=== PATIENT | female | born 2000 | race Caucasian/White ===

== ENCOUNTER → 2022-03-29 | Outpatient (CLI) | payer MEDICAID, SELFPAY | END | disposition home or self-care (01) | LOC: LABSPEC 11:55 | PROVIDERS: PCP Student in an Organized Health Care Education/Training Program; Referring Provider Nurse Practitioner Women's Health; Visit Provider Nurse Practitioner Women's Health | DX: N89.8 Other specified noninflammatory disorders of vagina (principal) | CPT/HCPCS: 87070; 87205 ==

== ENCOUNTER → 2022-09-27 | Outpatient (CLI) | payer MEDICAID, SELFPAY ==
[2022-09-27 10:23] LABS: Absolute Lymphocyte Count 3.09 X10^3/uL (0.83-4.51); Absolute Neutrophil Count 4.6 X10^3/uL (2.0-7.7); Basophil# 0.04 X10^3/uL; Basophil% 0.5 % (0-1); Eosinophil# 0.06 X10^3/uL; Eosinophils% 0.7 % (0-5); Hematocrit 45.1 % (37-47); Hemoglobin 14.8 g/dL (12.0-15.0); Lymphocyte # 3.09 X10^3/ul (0.83-4.51); Lymphocyte % 38.1 % (19-41); Mean Corp Hgb Conc 32.8 g/dL (32-36); Mean Corpuscular Hgb 29.6 pg (27.0-32.0); Mean Corpuscular Volume 90.2 fL (81-99); Mean Platelet Vol. 10.2 fl (6.2-12.0); Monocyte# 0.33 X10^3/uL; Monocyte% 4.1 % (0-10); NRBC Flagged by Analyzer 0 % (0-5); Neutrophil # 4.57 X10^3/uL (2.7-7.7); Neutrophil % 56.4 % (47-70); Platelet Count 296 K/mm3 (150-450); RBC Distribution Width CV 13.2 % (11.6-14.6); RBC Distribution Width SD 43.8 fl (35.1-43.9); White Blood Count 8.1 K/mm3 (4.4-11.0)
[2022-09-27 10:57] LABS: Anion Gap 2 (5-15); BUN 11 mg/dL (7-18); Calcium,Total 8.7 mg/dL (8.5-10.1); Chloride 113 mmol/L (98-107); EST Glomerular Filtration Rate 65 mL/min (>60); Est Glom Filt Rate - Afr Amer 78 mL/min (>60); Glucose 82 mg/dL (74-106); Potassium 3.8 mmol/L (3.5-5.1); Sodium Level 140 mmol/L (136-145)
[2022-09-27 14:21] LABS: Hemoglobin A1c 4.7 % (3.8-5.6)
== END | disposition home or self-care (01) ==
PROVIDERS: PCP Student in an Organized Health Care Education/Training Program; Referring Provider Obstetrics & Gynecology; Visit Provider Obstetrics & Gynecology
DX: N93.9 Abnormal uterine and vaginal bleeding, unspecified (principal)
CPT/HCPCS: 36415; 80048; 83036; 85025; 86850; 86900; 86901

== ENCOUNTER → 2022-10-04 | Outpatient (CLI) | payer MEDICAID, SELFPAY ==
--- NOTE | 2022-10-04 12:52 | US_ITS ---
STUDY: ULTRASOUND OF THE FEMALE PELVIS - COMPLETE REASON FOR EXAM: Female, 22 years old. AUB LMP: Unknown. TECHNIQUE: Transabdominal TECHNICAL QUALITY: Limited. COMPARISON: None. FINDINGS: The uterus is anteverted and is in a midline position. The uterus measures 7.9 x 4.2 x 3.7 cm. There is a limited visualization of the uterus given the technique. The endometrium is not well visualized. The ovaries were not visualized due to overlying bowel gas.. There is no fluid in the cul-de-sac. The pre void volume of the bladder was 108 ml. Polycystic ovary disease: No. US/Pelvic (Non ) IMPRESSION: Limited study. The uterus is visualized. The endometrium is not well visualized and the ovaries are not visualized. Could consider repeating this study or could consider follow-up MRI of the pelvis given patient''s clinical history presentation. There is no visualized free fluid allowing for technique. Electronically Signed: Yoselin Silveira MD at 5:54 EDT ,
== END | disposition home or self-care (01) ==
LOC: OPUS 12:51
PROVIDERS: PCP Student in an Organized Health Care Education/Training Program; Referring Provider Obstetrics & Gynecology; Visit Provider Obstetrics & Gynecology
DX: N93.9 Abnormal uterine and vaginal bleeding, unspecified (principal)
CPT/HCPCS: 76856

== ENCOUNTER → 2023-09-14 | Outpatient (CLI) | payer MEDICAID, SELFPAY | END | disposition home or self-care (01) | PROVIDERS: PCP Student in an Organized Health Care Education/Training Program; Referring Provider Nurse Practitioner Family; Visit Provider Nurse Practitioner Family | DX: N89.8 Other specified noninflammatory disorders of vagina (principal) | CPT/HCPCS: 87070; 87086; 87088; 87205 ==

== ENCOUNTER 2024-12-11 09:24 | Day surgery (SDC) | payer MEDICAID, SELFPAY ==
--- NOTE | 2024-12-04 10:02 | EKG12_ITS ---
Test Reason : PREOP Blood Pressure : */* mmHG Vent. Rate : 84 BPM Atrial Rate : 84 BPM P-R Int : 126 ms QRS Dur : 78 ms QT Int : 372 ms P-R-T Axes : -3 57 7 degrees QTcB Int : 439 ms Normal sinus rhythm Possible Lateral infarct , age undetermined Abnormal ECG Confirmed by GENE BEAULIEU, VASYL ([id number]), fashion editor DANI ANTON ([id number]) on 12/04/2024 1:47:29 PM Referred By: Rajesh VERDE Confirmed By: VASYL MILLS MD
[2024-12-04 11:37] LABS: Hematocrit 42.6 % (37-47); Hemoglobin 13.8 g/dL (12.0-15.0); Mean Corp Hgb Conc 32.4 g/dL (32-36); Mean Corpuscular Volume 88.8 fL (81-99); Mean Platelet Vol. 10.7 fl (6.2-12.0); Platelet Count 270 K/mm3 (150-450); RBC Distribution Width CV 13.3 % (11.6-14.6); RBC Distribution Width SD 43.1 fl (35.1-43.9); Red Blood Count 4.80 M/mm3 (4.2-5.4); White Blood Count 6.8 K/mm3 (4.4-11.0)
[2024-12-04 11:42] LABS: Partial Thromboplast Time 25.9 Seconds (24.1-36.2)
[2024-12-04 12:07] LABS: AST(SGOT) 18 U/L (<=31); Alanine Aminotransfer ALT/SGPT 15 U/L (<=34); Albumin, Serum 4.0 g/dL (3.5-5.0); Alkaline Phosphatase 57 U/L (35-104); Anion Gap 13 (5-15); BUN 7 mg/dL (4-19); BUN/Creat Ratio 7.7 RATIO (10-20); Calcium,Total 9.1 mg/dL (7.6-11.0); Carbon Dioxide 19.0 mmol/L (21.0-32.0); Chloride 108 mmol/L (98-108); Globulin 2.8 g/dL (2.2-4.2); Glucose 93 mg/dL (70-99); Potassium 3.8 mmol/L (3.3-5.1)
[2024-12-04 12:14] LABS: Magnesium 2.4 mg/dL (1.5-2.2)
--- NOTE | 2024-12-04 16:22 | PAT.ANE_ITS ---
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 When Was Last Pacemaker Check QUESTION #4 FULL TEXT: You/Your Family Experience fever (hyperthermia) with Anesthesia Last Oral Intake Last Oral intake: Last Oral Intake NPO since Meds taken in AM with sips of water? 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 Female Yes 11/29/24 13:46 HX of Motion Sickness No 11/29/24 13:46 HX of N/V After Surgery Yes 11/29/24 13:46 Non-Smoker Yes 11/29/24 13:46 Duration of Surgery greater Yes 11/29/24 13:46 than 60 minutes Number of Risk Factors 4 11/29/24 13:46 PONV Score Severe Risk 11/29/24 13:46 Height & Weight Height & Weight: Anesthesia: Height & Weight Height 5 ft 5 in 10/19/24 16:18 Respiratory Assessment Respiratory Assessment - artificial snow making machine operator: Respiratory Tract Infection Hx - artificial snow making machine operator Hx Respiratory Tract Infection No 11/29/24 13:46 STOP Sleep Apnea STOP Sleep Apnea - artificial snow making machine operator: STOP Sleep Apnea - artificial snow making machine operator Hx Hypertension No 11/29/24 13:46 Hx Sleep Apnea No 11/29/24 13:46 CPAP BIPAP Do you snore loudly (louder Yes 11/29/24 13:46 than talking or can be heard Do you often feel tired/ No 11/29/24 13:46 fatigued/ sleepy during daytime? Has anyone observed you stop No 11/29/24 13:46 breathing during sleep? STOP Results Negative 11/29/24 13:46 QUESTION #5 FULL TEXT : Do you snore loudly (louder than talking or can be heard through closed doors)? 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 Specify any problems Hx of Preganancy in last 3 No 11/29/24 13:46 Months Nurse Filling Out Transfusion DSCHRIBER 11/29/24 13:46 & Questions: Date: 11/29/24 11/29/24 13:46 Time: 13:48 11/29/24 13:46 Patient unable to answer at this time (ie. 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 operator: /Reproductive Hx- artificial snow making machine operator Hx Now No 11/29/24 13:46 Gestational Age (in weeks): EDC: Hx Hx Para Hx Section SAB No 11/29/24 13:46 PFSH Medical History (Updated 11/29/24 @ 13:56 by Shana Yang) Wears glasses Scratch Thyroid disease Bladder disease Difficulty swallowing Asthma Non-smoker Tremors of nervous system Diabetes Autism Anxiety and depression Seizures Home Medications Medication Instructions Recorded Last Taken Type cetirizine 10 mg capsule (Zyrtec) 10 mg PO DAILY ALLER GY 10/09/15 Unknown History metformin 500 mg tablet 500 mg PO BIDCM DIABETES 01/13 Unknown History zonisamide 100 mg capsule 300 mg PO DAILY SEIZURE 06/29 Unknown History ascorbic acid (vitamin C) 500 mg 500 mg PO DAILY SUPPL EMENT 10/12/24 Unknown History capsule cholecalciferol (vitamin D3) 50 100 mcg PO QDAY SUPPLE MENT 10/12/24 Unknown History mcg (2,000 unit) capsule clonazepam 2 mg tablet (Klonopin) 1 mg PO PRN PRN SEIZ URE 10/12/24 Unknown History levothyroxine 100 mcg tablet 150 mcg PO DAILY THYROID 10/12/24 Unknown History montelukast 10 mg tablet 10 mg PO QHS ALLERGY 5 Unknown History (Singulair) sertraline 100 mg tablet (Zoloft) 150 mg PO QDAY DEPRE SSION 10/12/24 Unknown History drospirenone 3 mg-ethinyl 1 tab PO DAILY CONTROL #28 11/27/24 Unknown Rx estradiol 0.03 mg tablet (Ocella) tabs biotin 10,000 mcg chewable tablet 20,000 mcg PO DAILY SUPPLEMENT 11/29/24 Unknown History (Hair, Skin and Nails (biotin)) mecobalamin (vitamin B12) 500 mcg 1,000 mcg PO DAILY S UPPLEMENT 11/29/24 Unknown History chewable tablet melatonin 3 mg capsule 6 mg PO QHS SLEEP 11/29/24 U nknown History zonisamide 100 mg capsule 200 mg PO QHS SEIZURE Unknown History Allergy/AdvReac Type Severity Reaction Status Date / Time No Known Allergies Allergy Verified 11/29/24 13:34 Family History Mother Diabetes Surgical History (Updated 11/29/24 @ 13:56 by Shana Yang) Hx of oral surgery History of toe surgery History of endometrial ablation Social History Smoking Status: Never smoker caffeine: No seatbelt use: always do you feel safe at home: Yes additional social history: Grandmother - Kathy (grandmother) Audit: Pertinent Findings Pertinent Findings EKG Perinent findings: 12/04/2024. Normal sinus rhythm 84 bpm. Possible lateral infarct, age undetermined. Recommendation Anesthesia Recommendation Anesthesia recommendation: OPTIMIZED for anesthesia
[2024-12-11] VITALS (15 sets, daily range): BP systolic 85–124; BP diastolic 41–80; PULSE 82–122; RESP 16–95; TEMP 36.2–37.1; O2SAT 80–100; BMI 44.4; BMI 43.4
[2024-12-11] MEDS: Lactated Ringers 1,000 ML 40 ML IV (06:21)
[2024-12-11] MEDS: Magnesium 1 GM over 15 mins IV (06:22)
[2024-12-11] MEDS: Scopolamine 1mg/72hr Patch 1 PATCH TD (06:35)
--- NOTE | 2024-12-11 06:54 | PCM.PRE.AN2 ---
ASA Classification* ASA Classification ASA Classification: 3 Assessment & Plan Anesthesia* Anesthesia Assessment Anesthesia Assessment: Discussed sedation and/or anesthesia options, risks, benefits, and alternatives with patient/parents/legal guardian/POA. Questions invited. The patient/parents/legal guardian/POA seems to understand and agrees to proceed with anesthesia plan. Reviewed the physical assessment, medical history, allergy history and patient home medications list prior to surgery/procedure/anesthetic and documented any changes. Performed airway and anesthesia risk assessments. Anesthesia Type Anesthesia Type: General History Source History Obtained from:: Patient and Chart Anesthesia Focused Assessment* Temperature: 97.4 F Pulse Rate: 95 Blood Pressure: 112/71 Respiratory Rate: 16 Pulse Ox: 100 Oxygen Delivery Method: Room Air Airway Assessment Mouth opens: >3 cm Mallampati Score: III Teeth Condition: Missing (Patient is missing a right lower molar.) Neck Range of motion (ROM): Limited ROM (Somewhat Decreased) Labs Anesthesia Preop lab: CBC WBC, (4.4-11.0) 6.8 K/mm3 12/04/24, : RBC, (4.2-5.4) 4.80 M/mm3 12/04/24, 10: Hgb, (12.0-15.0) 13.8 g/dL 12/04/24, : Hct, (37-47) 42.6 % 12/04/24, 10: Plt Count, (150-450) 270 K/mm3 12/04/24, 10:21 CHEMISTRY Potassium, (3.3-5.1) 3.8 mmol/L 12/04/24, 10: Sodium, (133-145) 140 mmol/L 12/04/24, 10: Magnesium, (1.5-2.2) 2.4 mg/dL H 12/04/24, 10: BUN, (4-19) 7 mg/dL 12/04/24, 10: Creatinine, (0.70-1.20) 0.89 mg/dL 12/04/24, 10: Glucose, (70-99) 93 mg/dL 12/04/24, 10:21 POC Glucose, (70-110) 77 mg/dL 10/09/16, 16:19 TSH, (0.300-4.200) 1.760 uIU/mL 12/04/24, 10:21 COAG Pre-Assessment Diagnosis/Proposed Procedure Planned Operative Procedure(s): TOTAL ROBOTIC HYSTERECTOMY BILAT SALPINGECTOMY CYSTO Anesthesia History 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 When Was Last Pacemaker Check QUESTION #4 FULL TEXT: You/Your Family Experience fever (hyperthermia) with Anesthesia Last Oral Intake Last Oral intake: Last Oral Intake NPO since 04:45 12/11/24 06:04 Meds taken in AM with sips of Yes 12/11/24 06:04 water? Meds patient instructed to take am of surgery Any additional information?: Yes NPO since: 04:45 (Patient had a preop Ensure at 4:45 AM.) Meds taken in AM with sips of water?: Yes PONV PONV - dye colorist formulator: PONV - dye colorist formulator Female Yes 11/29/24 13:46 HX of Motion Sickness No 11/29/24 13:46 HX of N/V After Surgery Yes 11/29/24 13:46 Non-Smoker Yes 11/29/24 13:46 Duration of Surgery greater Yes 11/29/24 13:46 than 60 minutes Number of Risk Factors 4 11/29/24 13:46 PONV Score Severe Risk 11/29/24 13:46 Height & Weight Height & Weight: Anesthesia: Height & Weight Height 5 ft 1 in 12/11/24 06:04 Weight: 106.503 kg 12/11/24 06:04 Body Mass Index (BMI) 44.4 12/11/24 06:04 Respiratory Assessment Respiratory Assessment - dye colorist formulator: Respiratory Tract Infection Hx - dye colorist formulator Hx Respiratory Tract Infection No 11/29/24 13:46 STOP Sleep Apnea STOP Sleep Apnea - dye colorist formulator: STOP Sleep Apnea - dye colorist formulator Hx Hypertension No 11/29/24 13:46 Hx Sleep Apnea No 11/29/24 13:46 CPAP BIPAP Do you snore loudly (louder Yes 11/29/24 13:46 than talking or can be heard Do you often feel tired/ No 11/29/24 13:46 fatigued/ sleepy during daytime? Has anyone observed you stop No 11/29/24 13:46 breathing during sleep? STOP Results Negative 11/29/24 13:46 QUESTION #5 FULL TEXT : Do you snore loudly (louder than talking or can be heard through closed doors)? Tobacco Use History Tobacco Use History - dye colorist formulator: Tobacco Use History - dye colorist formulator Tobacco Use Smoking Status Never smoker 11/29/24 13:46 Hx Tobacco Use No 11/29/24 13:46 Years Smoking Packs Smoked per Day Smoking Cessation Date was within the last 15 years Hx Smoking Cessation Date Hx Smoking Cessation Counseling Hematologic Medial History Hematologic Hx - dye colorist formulator: Hematologic Medical Hx - preforms laminator Hx of Blood Transfusion No 11/29/24 13:46 Hx of Transfusion in last 3 No 11/29/24 13:46 Months Date of Last Transfusion (if within last 3 months) Ever experience any problems No 11/29/24 13:46 with transfusion(s)? Specify any problems Hx of Preganancy in last 3 No 11/29/24 13:46 Months Nurse Filling Out Transfusion DSCHRIBER 11/29/24 13:46 & Questions: Date: 11/29/24 11/29/24 13:46 Time: 13:48 11/29/24 13:46 Patient unable to answer at this time (ie. confused, unrespo /Reproduction History /Reproductive History - dye colorist formulator: /Reproductive Hx- dye colorist formulator Hx Now No 11/29/24 13:46 Gestational Age (in weeks): EDC: Hx Hx Para Hx Section SAB No 11/29/24 13:46 Active Medications Active Medications: Current Medications Generic Name Dose Route Start Last Admin Trade Name Freq PRN Reason Stop Dose Admin Acetaminophen 1,000 mg 12/11/24 07:30 Acetaminophen 500 Mg Tablet PO 12/11/24 07:31 PREOP ONE Celecoxib 400 mg 12/11/24 07:30 Celecoxib 200 Mg Capsule PO 12/11/24 07:31 PREOP ONE Gabapentin 600 mg 12/11/24 07:30 Gabapentin 600 Mg Tablet PO 12/11/24 07:31 PREOP ONE Lactated Ringer's 1,000 mls @ 40 mls/hr 12/11/24 07:30 12/11/24 06:21 IV 40 mls/hr .Q25H CECIL Administration Cefazolin Sodium 2 gm/ Sodium 110 mls @ 150 mls/hr 12/11/24 07:30 Chloride IV 12/11/24 08:13 INTRAOP ONE Lactated Ringer's 1,000 mls @ 70 mls/hr 12/11/24 07:30 IV .[id number] CECIL Magnesium Sulfate 1 gm/ 102 mls @ 408 mls/hr 12/11/24 07:30 12/11/24 06:22 Dextrose IV 12/11/24 07:44 408 mls/hr PREOP ONE Administration Insulin Human Lispro 0 unit 12/11/24 07:30 Insulin Lispro 100 Unit/Ml Insuln.Pen SC 12/11/24 18:00 Q4H PRN PRN BG >/= 180, SEE PROTOCOL Protocol Ondansetron HCl 4 mg 12/11/24 07:30 Ondansetron 4 Mg/2 Ml Vial IV 12/11/24 07:31 INTRAOP ONE Phenazopyridine HCl 190 mg 12/11/24 07:30 Phenazopyridine 95 Mg Tablet PO 12/11/24 07:31 PREOP ONE Scopolamine HBr 1 patch 12/11/24 07:30 12/11/24 06:35 Scopolamine 1mg/72hr Patch TD 12/11/24 07:31 1 patch PREOP ONE Administration PFSH Medical History Wears glasses Scratch Thyroid disease Bladder disease Difficulty swallowing Asthma Non-smoker Tremors of nervous system Diabetes Autism Anxiety and depression Seizures Home Medications Medication Instructions Recorded Last Taken Type cetirizine 10 mg capsule (Zyrtec) 10 mg PO DAILY ALLERGY 10/09/15 12/10/24 History metformin 500 mg tablet 500 mg PO BIDCM DIABETES 10/09/15 12/10/24 History zonisamide 100 mg capsule 300 mg PO DAILY SEIZURE 07/18/23 12/11/24 04:00 History ascorbic acid (vitamin C) 500 mg 500 mg PO DAILY SUPPLEMENT 10/12/24 12/10/24 History capsule cholecalciferol (vitamin D3) 50 100 mcg PO QDAY SUPPLEMENT 10/12/24 12/10/24 History mcg (2,000 unit) capsule clonazepam 2 mg tablet (Klonopin) 1 mg PO PRN PRN SEIZURE 10/12/24 12/11/24 04:00 History levothyroxine 100 mcg tablet 150 mcg PO DAILY THYROID 10/12/24 12/11/24 04:00 History montelukast 10 mg tablet 10 mg PO QHS ALLERGY 10/12/24 12/10/24 History (Singulair) sertraline 100 mg tablet (Zoloft) 150 mg PO QDAY DEPRESSION 10/12/24 12/10/24 History drospirenone 3 mg-ethinyl 1 tab PO DAILY CONTROL #28 11/27/24 12/10/24 Rx estradiol 0.03 mg tablet (Ocella) tabs biotin 10,000 mcg chewable tablet 20,000 mcg PO DAILY SUPPLEMENT 11/29/24 12/10/24 History (Hair, Skin and Nails (biotin)) mecobalamin (vitamin B12) 500 mcg 1,000 mcg PO DAILY SUPPLEMENT 11/29/24 12/10/24 History chewable tablet melatonin 3 mg capsule 6 mg PO QHS SLEEP 11/29/24 12/10/24 History zonisamide 100 mg capsule 200 mg PO QHS SEIZURE 11/29/24 12/10/24 History Allergy/AdvReac Type Severity Reaction Status Date / Time No Known Allergies Allergy Verified 12/11/24 06:00 Family History Mother Diabetes Surgical History Hx of oral surgery History of toe surgery History of endometrial ablation Social History Smoking Status: Never smoker caffeine: No seatbelt use: always do you feel safe at home: Yes additional social history: Grandmother - Kathy (grandmother) Review of Systems (Anesthesia) ROS Narrative System reviewed and no additional complaints, except as documented.
--- NOTE | 2024-12-11 07:27 | PCM.HP.BLA ---
History and Physical Date of Admission: 12/11/24 Intake Vital Signs 10/12/2514:45 10/20/2515:18 11/16/2509:54 11/16/2509:55 Height 5 ft 5 in 5 ft 5 in 5 ft 5 in 5 ft 5 in Weight: 231 lb 234 lb 6 oz BMI 38.4 38.9 BP 101/69 104/69 Intake Visit Reasons: TRH BS Cysto Chief Complaint: preop Tapper Hand Required: No Is patient in pain?: No Allergies No Known Allergies Allergy (Verified 11/16/24 10:54) Medications Medication Instructions Recorded Confirmed Type cetirizine 10 mg capsule (Zyrtec) 10 mg PO DAILY 10/09/15 11/16/24 History melatonin 5 mg/15 mL oral liquid 3 mg PO QHS 10/09/15 11/16/24 History metformin 500 mg tablet 500 mg PO BIDCM 10/09/15 11/16/24 History zonisamide 100 mg capsule 200 mg PO BID 07/18/23 11/16/24 History drospirenone 3 mg-ethinyl 1 tab PO DAILY #84 tabs 08/28/24 11/16/24 Rx estradiol 0.03 mg tablet (Ocella) ascorbic acid (vitamin C) 500 mg mg PO 10/12/24 11/16/24 History capsule cholecalciferol (vitamin D3) 50 50 mcg PO QDAY 10/12/24 11/16/24 History mcg (2,000 unit) capsule clonazepam 2 mg tablet (Klonopin) 2 mg PO QHS PRN 10/12/24 11/16/24 History fluconazole 150 mg tablet 150 mg PO QWEEK 10/12/24 11/16/24 History levothyroxine 100 mcg tablet 150 mcg PO DAILY 10/12/24 11/16/24 History montelukast 10 mg tablet 10 mg PO QDAY 10/12/24 11/16/24 History (Singulair) multivitamin 1 tab PO QDAY 10/12/24 11/16/24 History sertraline 100 mg tablet (Zoloft) 150 mg PO QDAY 10/12/24 11/16/24 History sertraline 25 mg tablet (Zoloft) 75 mg PO DAILY 10/12/24 11/16/24 History Post menopausal: No Patient : No : No REPLACED BY [facility] Medical History Tremors of nervous system Diabetes Autism Anxiety and depression Seizures Surgical History History of toe surgery History of endometrial ablation Family History Mother Diabetes Social History Smoking Status: Never smoker caffeine: No seatbelt use: always do you feel safe at home: Yes additional social history: Grandmother - Kathy (grandmother) HPI TRH BS Cysto Details: KAMALA VIDES is a 24 year old who presents for a preoperative discussion with her grandmother, who has legally been appointed to make all medical decision on her behalf, to discuss robotic hysterectomy. Her grandparents state that nothing has helped her heavy menses. She has tried and failed ocps, depo shot, endometrial ablation. They state that she does not understand personal hygiene and will at times use old feminine pads for example when she had her menses. They believe that her overall quality of life will be greatly improved if she does not have to have the burden of a menses. Her grandmother states that she does not want children and the patient concurs. They give me an example of a time they baby sat an infant overnight. The baby's cries sent Kamala into a grandmal seizure due to the stress. Kamala is being managed for epilepsy through [facility]. the Uterus is 7.9 x 3.2 x 4.7 cm. Her exam was noted by Dr. Aragon to have limited pelvic space and a robotic hysterectomy would likely be easier and therefore safer for her overall outcome. History 0 Elective abortions Hx Para Spontaneous abortions Hx # Term Pregnancies Ectopic pregnancies Hx # Pregnancies Multiple births # of living children ROS Const ROS Unobtainable: All systems reviewed & are unremarkable except as noted in H Resp Resp: Reports system reviewed and no additional complaints, except as documented; Denies cough GI GI: Reports as per HPI Psych Psych: Reports system reviewed and no additional complaints, except as documented Exam Const General: cooperative, healthy appearing, comfortable and no acute distress Resp Effort & Inspection: normal respiratory effort Skin General: no rashes or lesions noted Psych Appearance: grossly normal Speech and Movement: speech and movement normal Coding Level of Care Code Off vis,est,level 4 Diagnoses Dysmenorrhea N94.6 Abnormal uterine bleeding N93.9 Assessment and Plan Assessment and Plan (1) Dysmenorrhea: Status: Acute Comment: failed OCP, discussed definitive therapy, s/p ablation, does not desire fertility due to severe autism and would not recommend future due to previous ablation. (2) Abnormal uterine bleeding: Status: Acute Comment: failed ablation, inadequate therapy with continuous OCP. letter will be written to the courts to have approved. discussed with patient an grandmother, plan LAVH BS or possible Robotic TLH. plan STO overnight with grandmother Plan After discussing the patient's diagnosis and treatment plan options, patient wishes to proceed with surgical management. I have discussed with the patient the risks, benefits, and alternatives of the procedure which include but are not limited to risks of anesthesia, bleeding, infection, possible damage to bowel, bladder, or surrounding vasculature which could lead to additional surgery to evaluate any complications. Patient agrees to procedure and wishes to proceed. ACOG/uptodate references given for additional information regarding procedure. plan is for total robotic hysterectomy, bs, cysto. grandmother signed consent. patient is resistant to taking pyridium. We will use methylene blue IV during the procedure. Cr. Is normal at 0.89
--- NOTE | 2024-12-11 07:30 | UT_PTH ---
PATIENT: SOPHIE VIDES [place] [facility] [id number] AGE/SX: 24/F ROOM: RE12/11/[address]: Dr. Destini Mathur DO : 2000 BED: DIS: 12/12/2024 SPEC #: [id number] RECD: 12/11/24 11:47 STATUS: HARITHA MARTIN #: [id number] [facility]: 12/11/24 07:[address]: Destini Mathur DEPT: SURGICAL PATHOLOGY RECD BY: Wu Yoo ENTERED: 12/11/24 14:08 SP TYPE: UTERUS OTHR DR: Dr. Nico Ramos DO Tissues: A - Uterus, NOS Procedures: Surgery Specimen Level V HEADER OPERATION: ERAS, total robotic hysterectomy, bilateral salpingectomy PRE-OP DIAGNOSIS: Dysmenorrhea, abnormal uterine bleeding, right ureteral stricture TISSUE SUBMITTED: A- Uterus, cervix, bilateral fallopian tubes MICROSCOPIC DIAGNOSIS A. Uterus, fallopian tubes, total robotic hysterectomy, bilateral salpingectomy: Cervix: Benign squamous epithelium and endocervical glandular tissue Endometrium: Inactive endometrium Myometrium: Leiomyoma Bilateral fallopian tubes: Benign fallopian tubes with no pathologic change MICROSCOPIC DESCRIPTION Slides are reviewed. GROSS DESCRIPTION A. Received in formalin labeled with the patient's name and date of . Designated as "uterus, cervix, bilateral fallopian tubes" is a 41.7 g, 6.5 x 2.9 x 2.3 cm uterus with attached adnexa. The serosa is piedra-pink and glistening with a 0.1 cm nodule on the posterior aspect; there is also a pinpoint serosal defect at the cornu, expelling mucoid material. The attached cervix is piedra-pink to purple and measures 3.3 x 3.3 cm; the 1.5 cm os is erythematous and somewhat shaggy, expelling copious amounts of slightly hemorrhagic mucoid material. The specimen is inked as follows: [id number] Opening reveals somewhat adherent mucoid material within the endocervical canal and a 5.9 x 0.9-1.4 cm endometrial canal lined by piedra-pink to red, somewhat granular and fibrotic endometrium (suspicious for ablation), measuring up to and 0.2 cm thick. The previously described pinpoint defect at the cornu appears to be contiguous with the endometrial canal at the fundus the myometrium is piedra-pink and glistening, measuring up to 1.3 cm thick. No definitive lesions are grossly appreciated. The pink- purple bilateral fallopian tubes are fimbriated and measure 5.8 x 0.4 cm (L) and 5.5 x 0.6 cm (R). There is a 0.3 cm paratubal cyst on the left fallopian tube. Speech Language Pathologist sections are submitted as follows: A1: Anterior cervixA2: Posterior cervixA3: Anterior endomyometriumA4: Posterior endomyometriumA5: Left fallopian tubeA6: Right fallopian tubeA7: Posterior serosal nodule, cornu defect contiguous with endometrial canal NM 12/11/2024 CPT:64313
[2024-12-11] MEDS: Cefazolin 1 GM/5 ML Vial 2 GM IV (07:35)
[2024-12-11] MEDS: Lactated Ringers 1,000 ML 1000 ML IV (07:35)
[2024-12-11] MEDS: Midazolam 2 MG/2 ML Syringe IV (07:35)
[2024-12-11] MEDS: Lidocaine 1% (5 ml sdv) 5 ML Vial IV (07:45)
[2024-12-11] MEDS: fentaNYL 100 MCG/2 ML Ampul IV (07:55)
[2024-12-11] MEDS: 0.9% Normal Saline (1000mL) 1,000 ML 1000 ML IV (08:46)
--- NOTE | 2024-12-11 09:16 | PCM.OPRPT ---
Procedures Urinary/Genital 52xxx-59xxx: 68022 Cystoscopy Multi Select Codes Urinary/Genital Urinary/Genital CPT Codes: 27821 TLH+BS/O <250gr uterus Operative Report (Standard) Operative Information Date of Procedure: 12/11/24 Pre-Operative Diagnosis: menorrhagia , failed conservative therapy Post-Operative Diagnosis: menorrhagia, failed conservative therapy Surgery/Procedure Performed: total robotic hysterectomy, bilateral salpingectomy, cystoscopy clockmaker: Yes Surface Mount Technology Operator: Tia Simons Tasks completed by orthodontist assistant: Opening and Trocar Additional coding assistant?: No Type of Anesthesia: General RN Documented Start/Stop Times: Operation Date: 12/11/24 07:30 Case Time Into Pre-Op 12/11/24 05:40 Out of Pre-Op 12/11/24 07:29 Anesthesia Start 12/11/24 07:35 Into Room 12/11/24 07:35 Procedure Start 12/11/24 08:05 Procedure End 12/11/24 10:31 Anesthesia End 12/11/24 10:44 Out of Room 12/11/24 10:44 Into Recovery 12/11/24 10:46 Out of Recovery 12/11/24 11:52 Procedure Start Time: 08:05 Procedure Stop Time: 10:31 Select all DRAINS/GRAFTS/IMPLANTS that apply: None Estimated Blood Loss: 30cc Specimen collected: Yes Description of specimen(s) removed: uterus, cervix, and fallopian tubes Description of surgery: Findings: 8 cm uterus, normal appearing ovaries and tubes. On exploration of the abdominal cavity the uterus, adnexa, bowel, and liver were found to be normal. Cystoscopy showed no evidence of leaking at approximately 250 cc of normal saline, positive ureteral orifices and jet flow were seen easily from the left ureter, the right was difficult to see due to lack of preoperative pyridium and difficult to pass a whistle tip catheter. Dr. Britt from urology was paged to the room to asses the right ureter. No suture material was appreciated in the bladder. She did perform a cystoscopy and attempted to insert the whistle-tip. There was some difficulty. Ultimately there was no ureteral injury. However her ureter was found to be very small. Specimens removed: Uterus and cervix, Bilateral tubes Reason for surgery: This is a 24-year-old G0 who presented to my office with her caregiver, (grandmother) with the complaint of heavy periods despite h/o uterine ablation at an outside facility and the use of control. The planned procedure is for a robotic hysterectomy due to lack of vaginal access as the patient is virginal. The risks benefits and alternatives were discussed with the caregiver and patient they had a clear understanding of the procedure and a consent form was signed. Procedure: The patient was placed in the dorsal low lithotomy position and prepped and draped in the normal sterile fashion both abdominally and in the perineum. Her legs were placed in stirrups a Mccrary catheter was inserted into the urethra without difficulty. A weighted speculum was placed in the vagina and a single-tooth tenaculum was used to grasp the anterior lip of the cervix. A size 2.5 cm advincula uterine manipulator was inserted through the cervix without complication. It was then tied into place at the 2 and 10:00 locations on the cervix. Gloves were changed and attention was turned towards the abdomen. Approximately 23 cm above the pubic symphysis in the midline, and after Marcaine injection, a 8 mm incision was made. An 8 mm trocar was inserted through the laparoscope, then inserted into the abdomen under direct visualization using the laparoscope. Good abdominal placement was noted and no complications were appreciated. An air seal device was utilized to create pneumoperitoneum. At 12 cm lateral to the midline on the left and right sides 8 mm accessory ports were placed. Next a left upper quadrant 8 mm coding assistant port site was placed. The patient was placed in steep Trendelenburg position. The robot was docked. The hysterectomy was initiated first by taking down the round ligament on each side using the vessel sealer device. The fallopian tube on the right was grasped and the underlying mesosalpinx was cauterized and cut to the level of the cornua. This was done on both sides of the uterus. The broad ligament was then and taken down using the vessel sealer device. Next the bladder flap was taken down without complication. This was done on both sides of the uterus. This was done using monopolar cautery to the level of the cervical vaginal junction. After the bladder flap was created, uterine vessels were then isolated and cauterized using the vessel sealer device and EndoShears. At this point the uterine vessels were taken down further starting from the ascending branch, dissecting along the edges of the cervix to the level of the cervical vaginal junction with hemostasis appreciated. The cervical vaginal junction was then using monopolar cautery in a circumferential pattern across the superior aspect of the cervix. The specimen was delivered through the vagina and sent to pathology. The remaining vaginal cuff was then closed using a V lock suture. This was performed in a running technique. Excellent hemostasis was obtained and good closure was noted. Irrigation was then performed. All operative sites were noted to be hemostatic. A cystoscopy was performed with a 70 degree cystoscope through the urethra into the bladder without complication. The bladder was instilled with approximately 250 cc of normal saline. Intraoperative images were made. Ureteral orifices and jet was identified on the left. The right was difficult to visualize and Dr. Britt from urology was asked to come in and assess. No suture material was appreciated in the bladder. The bladder was then drained and cystoscope was removed. Dr. Ivan gonzalez will be dictating separately however she did not find any operative injury. The vaginal cuff was taken down and resutured to ensure that this was not due to a ureteral impingement. It was found that the ureter on the right side was simply much smaller than the left and because of lack of Pyridium we were unable to see ureteral jet flow. Parpart will be dictated separately. The abdominal cavity was again examined. All operative sites were noted to be hemostatic. The trochars were removed under direct visualization without complication and pneumoperitoneum was reduced. At this point the skin was then closed using 4-0 Monocryl subcuticular stitch and sealed with surgical glue. The patient tolerated the procedure well sponge lap and needle counts were correct x2 the patient was taken to the recovery room in stable condition. Surgical Findings: Normal appearing uterus, tubes, ovaries. Normal appearing bladder Complications Complications: No Admit VTE Documentation VTE Present on Admission: No VTE Mechan Device Prophylaxis: SCD's VTE Pharm Prophylaxis ordered?: Yes
--- NOTE | 2024-12-11 09:28 | DCINST_ITS ---
Discharge Instructions DC O2, CPAP, BIPAP needs Home O2 Discharge instructions: No Dressing / Incision Discharge Activity: May Shower May resume sexual activity in: 8 weeks Weight Bearing Status: Full weight bearing Lifting Restrictions: 10 pounds for 2 weeks Dressing / Incision Call your doctor if your incision/area has: Continuous Slow Oozing, Sudden I ncreased Bleeding, Increased Pain/ Swelling, Increased Redness and Foul Smelling Discharge Call your doctor if you observe: Fever of 101 or Higher, Using more than 1 pad per hour, Shortness of breath, Chest pain and Uncontrolled pain Suture Line Care: Avoid Pulling/Pushing and Avoid Pinching/Bending Remove Dressing in: 1 week (if present) Cleanse incision/area with: Soap & Water and Keep Dressing Clean & Dry Follow Up Care Please Follow Up With: Destini Mathur DO When: Call to make an appointment with your doctor for a postop visit in 2 and 6 weeks Test Results: Test results from this visit will be discussed in further detail at your follow- up appointment, if applicable. Discharge Plan Admission Admit Date/Time: 12/11/24 05:23 Primary Reason for Your Visit: hysterectomy Attending Provider: Destini Mathur Primary Care Provider: Nico Ramos Discharge Orders/Prescriptions Prescriptions: New ondansetron HCl 4 mg tablet 4 mg PO Q6H PRN (Reason: nausea and vomiting) Qty: 20 0RF oxycodone-acetaminophen [Percocet] 5-325 mg tablet 1 tab PO Q4H PRN (Reason: pain) 7 Days Qty: 20 0RF ibuprofen 800 mg tablet 800 mg PO Q8H PRN (Reason: pain) Qty: 30 0RF Continued zonisamide 100 mg capsule 300 mg PO DAILY clonazepam [Klonopin] 2 mg tablet 1 mg PO PRN PRN (Reason: SEIZURE) Rx Instructions: administer 30 minutes before bedtime sertraline [Zoloft] 100 mg tablet 150 mg PO QDAY ascorbic acid (vitamin C) 500 mg capsule 500 mg PO DAILY cholecalciferol (vitamin D3) 50 mcg (2,000 unit) capsule 100 mcg PO QDAY montelukast [Singulair] 10 mg tablet 10 mg PO QHS metformin 500 MG tablet 500 mg PO BIDCM Zyrtec 10 MG capsule 10 mg PO DAILY levothyroxine 100 mcg tablet 150 mcg PO DAILY zonisamide 100 mg capsule 200 mg PO QHS mecobalamin (vitamin B12) 500 mcg tablet,chewable 1,000 mcg PO DAILY Hair, Skin and Nails (biotin) 10,000 mcg tablet,chewable 20,000 mcg PO DAILY melatonin 3 mg capsule 6 mg PO QHS Referrals / Follow Up: Nico Ramos DO [Primary Care Provider, Medical] Disposition Disposition (needs filled in before D/C Order can be placed): Home, Self Care
[2024-12-11] MEDS: dexMEDEtomidine 200 MCG/2 ML ML 77.2 MCG IV (10:34)
--- NOTE | 2024-12-11 10:50 | OP.PCM_ITS ---
Operative Report (Standard) Operative Information Date of Procedure: 12/11/24 Pre-Operative Diagnosis: Abnormal uterine bleeding Post-Operative Diagnosis: Same, right ureteral stricture Surgery/Procedure Performed: Cystoscopy, right retrograde pyelogram, right ureteroscopy, attempted right ureteral stent insertion blow mold operator: No Type of Anesthesia: General RN Documented Start/Stop Times: Operation Date: 12/11/24 07:30 Case Time Into Pre-Op 12/11/24 05:40 Out of Pre-Op 12/11/24 07:29 Anesthesia Start 12/11/24 07:35 Into Room 12/11/24 07:35 Procedure Start 12/11/24 08:05 Procedure End 12/11/24 10:31 Into Recovery 12/11/24 10:46 Procedure Start Time: 09:30 Procedure Stop Time: 10:31 Select all DRAINS/GRAFTS/IMPLANTS that apply: None Estimated Blood Loss: <5cc Specimen collected: No Description of surgery: The patient is a 24-year-old female who is undergoing a robotic assisted laparoscopic hysterectomy who had no urine seen from the right ureteral orifice at the time of cystoscopy at the conclusion of the case. I was called in for further evaluation of this finding. The left side was easily cannulated with a whistle-tip catheter which advanced easily to 20 cm without evidence of obstruction or injury. At this time the patient was still in Trendelenburg positioning and the robot was docked. She was prepped and draped in usual sterile fashion. The cystoscope was inserted through the urethra under direct visualization into the urinary bladder. There was no evidence of bladder injury, ulceration or mass. Bilateral ureteral orifices were located in the area of the trigone. The right ureteral orifice was cannulated with a whistle-tip catheter which advanced only approximately 2 cm into the distal ureter before meeting resistance. At this time a 0.035 Glidewire was passed without difficulty or resistance. An attempt was then made to pass a Pollick catheter over the wire which was unsuccessful. The ureter was found to be very tight just a few centimeters proximal to the orifice. An attempt was made at passing a ureteroscope over the Glidewire. This was unsuccessful but I could visualize a small amount of space surrounding the Glidewire. At this time the decision was made to complete the hysterectomy portion of the case, undocked the robot and flatten the patient and bring in fluoroscopy for further evaluation and management. With fluoroscopy in place, there is confirmation of the Glidewire being within the renal pelvis. An 8 Chinese cone-tip catheter was used to gently cannulate the orifice alongside of the wire. Contrast was then injected in retrograde fashion and was seen in the renal pelvis, however the caliber of the ureter was found to be very narrow. Under fluoroscopic visualization, an attempt was made at passing a 6 Chinese ureteral stent. This was unsuccessful as significant amount of resistance was met. When the stent was removed urine could be seen exiting the right ureter with methylene blue dye in place. The decision was made to leave the patient without further manipulation and proceed with evaluation and with CT scan postoperatively. The cystoscope, Glidewire etc. were removed without incident. The port sites were closed and the patient was awakened and taken to the recovery room in good condition. There were no complications during the pr ocedure. Surgical Findings: Right ureteral stricture Complications Complications: No Admit VTE Documentation VTE Present on Admission: Yes VTE Mechan Device Prophylaxis: SCD's
--- NOTE | 2024-12-11 10:56 | PCM.POST.ANE ---
Anesthesia: Postop Eval I Current Vital Signs Temperature: 97.4 F Pulse Rate: 82 Blood Pressure: 85/58 Respiratory Rate: 18 Pulse Ox: 95 Assessment Airway patent: Yes Spontaneous unlabored respirations: Yes nausea: No Vomiting: No Anesthesia Complication: No Fluid Hydration Crystalloid volume administer (ml): 2,000 Total IV fluid infused: 2,000 Progress Note Anesthesia document: Postop Eval 1 completed: Yes
--- NOTE | 2024-12-11 12:22 | CT_ITS ---
PROCEDURE: CT ABD/PELVIS W/WO CONTRAST 12/11/2024 REASON FOR EXAM: RIGHT URETERAL STRICTURE. Status post laparoscopic hysterectomy today. TECHNIQUE: Procedure Code: [id number] Modality: CT Procedure: CT ABD/PELVIS W/WO CONTRAST Coronal and Sagittal reconstruction series were provided. CONTRAST: Isovue 370 VOLUME: 100 mL One or more dose reduction techniques were used (e.g., Automated exposure control, adjustment of the mA and/or kV according to patient size, use of iterative reconstruction technique. RADIATION DOSE SUMMARY: CTDlvol: 21.93, 9.11, 20.24, 17.78 mGy DLP: 3392 mGycm COMPARISON: None. FINDINGS: LUNG BASES: Minimal dependent atelectasis bilaterally. LIVER: Unremarkable. GALLBLADDER: Unremarkable. No calcified stone. BILE DUCTS: No ductal dilation. PANCREAS: Unremarkable. SPLEEN: Unremarkable. ADRENAL GLANDS: Unremarkable. URINARY TRACT: No renal or ureteral stones. Normal renal enhancement and excretion bilaterally. Mild right hydronephrosis and proximal-mid hydroureter, with normal caliber distally. Both ureters opacify with contrast on delayed imaging with no evidence of filling defect or stricture. Minimal asymmetric bladder wall thickened at the right ureterovesicular junction. Intraluminal air in the urinary bladder, from recent instrumentation. STOMACH AND BOWEL: No obstruction or perforation. No wall thickening. No CT evidence of colitis or acute diverticulitis. APPENDIX: Normal-appearing appendix. No CT evidence for appendicitis. RETRO/PERITONEUM: Mild scattered pneumoperitoneum in the abdomen and pelvis. Minimal pelvic fluid. No focal fluid collection. LYMPH NODES: No lymphadenopathy. PELVIC ORGANS: Status post hysterectomy. No adnexal lesions. VASCULATURE: No aortic aneurysm. ABDOMINAL WALL AND SOFT TISSUES: Postoperative changes from recent laparoscopic surgery. BONES: No fracture or suspicious osseous abnormality. CT/CT Abd/Pelvis W/WO Contrast IMPRESSION: Mild right hydronephrosis and proximal to mid hydroureter. No obstructing uret eral lesion seen. Minimal bladder wall thickening at the right UVJ, may represent focal infection or inflammation. Reading Location: [facility]
--- NOTE | 2024-12-11 12:30 | POSTOPAN2_ITS ---
Anesthesia Postop Eval I Sum Postop Eval Completion status Anesthesia document: Postop Eval 1 completed: Yes Anesthesia Postop Eval I Summary Anesthesia Postop Eval I Summary: Anesthesia Postop Eval I: Assessment Summary Airway patent Yes 12/11/24 10:56 SERGING MACHINE OPERATOR AUTOMATIC.[email or web address] Spontaneous unlabored Yes 12/11/24 10:56 SERGING MACHINE OPERATOR AUTOMATIC.[email or web address] respirations Mental status nausea No 12/11/24 10:56 SERGING MACHINE OPERATOR AUTOMATIC.[email or web address] Vomiting No 12/11/24 10:56 SERGING MACHINE OPERATOR AUTOMATIC.[email or web address] Anesthesia Postop Eval I: Fluid Summary Crystalloid volume administer 2,000 12/11/24 10:56 SERGING MACHINE OPERATOR AUTOMATIC.GDOTT (ml) Colloids volume administered ( ml) Blood Product volume administered (ml) Total IV fluid infused 2,000 12/11/24 10:56 SERGING MACHINE OPERATOR AUTOMATIC.GDOTT Anesthesia Postop Eval I: Summary Notes Anesthesia Complication No 12/11/24 10:56 SERGING MACHINE OPERATOR AUTOMATIC.[email or web address] Anesthesia Complication Comment: Post-operative progress note Anesthesia: Postop Eval II Evaluation Mental status: Awake and Uncooperative Pain Level: 1 nausea: No Vomiting: No Complications Anesthesia Complication: No
--- NOTE | 2024-12-11 12:30 | PCM.POSTANE2 ---
Anesthesia Postop Eval I Sum Postop Eval Completion status Anesthesia document: Postop Eval 1 completed: Yes Anesthesia Postop Eval I Summary Anesthesia Postop Eval I Summary: Anesthesia Postop Eval I: Assessment Summary Airway patent Yes 12/11/24 10:56 CREPING MACHINE [email or web address].[email or web address] Spontaneous unlabored Yes 12/11/24 10:56 CREPING MACHINE OPERATOR.GDOTT respirations Mental status nausea No 12/11/24 10:56 CREPING MACHINE OPERATOR.GDOTT Vomiting No 12/11/24 10:56 CREPING MACHINE OPERATOR.[email or web address] Anesthesia Postop Eval I: Fluid Summary Crystalloid volume administer 2,000 12/11/24 10:56 CREPING MACHINE OPERATOR.GDOTT (ml) Colloids volume administered ( ml) Blood Product volume administered (ml) Total IV fluid infused 2,000 12/11/24 10:56 CREPING MACHINE OPERATOR.GDOTT Anesthesia Postop Eval I: Summary Notes Anesthesia Complication No 12/11/24 10:56 CREPING MACHINE OPERATOR.GDOTT Anesthesia Complication Comment: Post-operative progress note Anesthesia: Postop Eval II Evaluation Mental status: Awake and Uncooperative Pain Level: 1 nausea: No Vomiting: No Complications Anesthesia Complication: No
[2024-12-11] MEDS: Lactated Ringers @ 70 MLS/HR 70 ML IV ×2 (12:36→21:10)
[2024-12-11] MEDS: ZONISAMIDE 100 MG CAPSULE 200 MG PO (18:22)
[2024-12-11] MEDS: 0.9% Saline Lock 10 ML Syringe IV ×2 (18:29→21:06)
[2024-12-11] MEDS: MELATONIN 3 MG TABLET 6 MG PO (20:58)
[2024-12-12 00:48] VITALS: BP 98/63; PULSE 85; RESP 18; TEMP 36.7; O2SAT 98
[2024-12-12 05:51] VITALS: BP 93/65; PULSE 97; RESP 18; TEMP 37.1; O2SAT 97
--- NOTE | 2024-12-12 07:01 | PN.OBGYN_ITS ---
Subjective Subjective Patient doing well without complaints. Tolerating PO. Ambulating without difficulty. Denies chest pain, shortness of breath, calf pain/swelling, fevers, chills, lightheadedness. Objective Data Objective Data Vital Signs: Vital Signs Temp Pulse Resp BP Pulse Ox O2 Del Method O2 Flow Rate 98.8 F 97 18 93/65 97 Room Air 10 12/12/24 05:51 12/12/24 05:51 12/12/24 05:51 12/12/24 05:51 12/12/24 05:51 12/12/24 05:51 12/11/24 11:30 Oxygen Flow Rate (L/min) 10 Oxygen Delivery Method Room Air Weight: 230 lb Body Mass Index (BMI) 43.4 Intake & Output: Intake and Output for Last 24 Hours 12/10/24 12/11/24 12/12/24 23:59 23:59 23:59 Intake Total 3147.67 / 3147.67 634.67 / 634.67 Output Total 130 / 130 Balance 3017.67 / 3017.67 634.67 / 634.67 Lab / Micro Data 12/12/24 07:21 12/04/24 10:21 Radiography Diagnostic Testing: Radiology Impression Abdomen/Pelvis CT 12/11/24 12:22 IMPRESSION: Mild right hydronephrosis and proximal to mid hydroureter. No obstructing ureteral lesion seen. Minimal bladder wall thickening at the right UVJ, may represent focal infection or inflammation. Reading Location: [facility] Constitutional Constitutional: Reports systems reviewed and no addt'l complaints, except as documented Cardiovascular Cardiovascular: Reports systems reviewed and no addt'l complaints, except as documented Respiratory/Chest Respiratory/Chest: Reports systems reviewed and no addt'l complaints, except as documented Gastrointestinal Gastrointestinal: Reports systems reviewed and no addt'l complaints, except as documented Physical Exam Const alert, oriented x3 and no apparent distress HEENT Head and Scalp: atraumatic Resp normal respiratory effort GI soft to palpation and non-tender Assessment & Plan (1) Status post hysterectomy: PLAN: Plan patient is s/p robotic tlh POD 1 1. routine ERAS protocol postop care- increase ambulation, encourage oral intake and oral control of pain. lovenox and scds for dvt prophylaxis, patient stable for discharge to home.
[2024-12-12 07:37] LABS: Hematocrit 35.4 % (37-47); Hemoglobin 11.9 g/dL (12.0-15.0); Mean Corp Hgb Conc 33.6 g/dL (32-36); Mean Corpuscular Volume 88.7 fL (81-99); Mean Platelet Vol. 10.2 fl (6.2-12.0); Platelet Count 233 K/mm3 (150-450); RBC Distribution Width CV 13.7 % (11.6-14.6); RBC Distribution Width SD 44.4 fl (35.1-43.9); Red Blood Count 3.99 M/mm3 (4.2-5.4); White Blood Count 10.8 K/mm3 (4.4-11.0)
[2024-12-12 08:38] VITALS: BP 98/53; PULSE 96; RESP 18; TEMP 36.9; O2SAT 97
[2024-12-12] MEDS: ZONISAMIDE 100 MG CAPSULE 300 MG PO (08:43)
[2024-12-12 09:16] LABS: Anion Gap 13 (5-15); BUN 8 mg/dL (4-19); BUN/Creat Ratio 9.3 RATIO (10-20); Calcium,Total 8.1 mg/dL (7.6-11.0); Carbon Dioxide 16.7 mmol/L (21.0-32.0); Chloride 111 mmol/L (98-108); Estimated Creatinine Clearance 110.19 ml/min (50-250); Glucose 100 mg/dL (70-99); Potassium 3.6 mmol/L (3.3-5.1)
--- NOTE | 2024-12-12 10:02 | PHA.DC.MR.R ---
Pharmacy [place] Med Reconciliation Pharmacy Service has performed discharge medication reconciliation for this patient. The patient's discharge medication list was reviewed for discrepancies and discrepancies were resolved. Medications at Discharge Home Medications cetirizine 10 mg capsule (Zyrtec) 10 mg PO DAILY ALLERGY 10/09/15 metformin 500 mg tablet 500 mg PO BIDCM DIABETES 10/09/15 zonisamide 100 mg capsule 300 mg PO DAILY SEIZURE 07/18/23 ascorbic acid (vitamin C) 500 mg capsule 500 mg PO DAILY SUPPLEMENT 10/12/24 cholecalciferol (vitamin D3) 50 mcg (2,000 unit) capsule 100 mcg PO QDAY SUPPLEMENT 10/12/24 clonazepam 2 mg tablet (Klonopin) 1 mg PO PRN PRN SEIZURE 10/12/24 levothyroxine 100 mcg tablet 150 mcg PO DAILY THYROID 10/12/24 montelukast 10 mg tablet (Singulair) 10 mg PO QHS ALLERGY 10/12/24 sertraline 100 mg tablet (Zoloft) 150 mg PO QDAY DEPRESSION 10/12/24 biotin 10,000 mcg chewable tablet (Hair, Skin and Nails (biotin)) 20,000 mcg PO DAILY SUPPLEMENT 11/29/24 mecobalamin (vitamin B12) 500 mcg chewable tablet 1,000 mcg PO DAILY SUPPLEMENT 11/29/24 melatonin 3 mg capsule 6 mg PO QHS SLEEP 11/29/24 zonisamide 100 mg capsule 200 mg PO QHS SEIZURE 11/29/24 ibuprofen 800 mg tablet 800 mg PO Q8H PRN pain #30 tabs 12/11/24 ondansetron HCl 4 mg tablet 4 mg PO Q6H PRN nausea and vomiting #20 tabs 12/11/24 oxycodone-acetaminophen 5 mg-325 mg tablet (Percocet) 1 tab PO Q4H PRN pain 7 days #20 tabs 12/11/24
== END 2024-12-12 09:40 | disposition home or self-care (01) ==
LOC: ACINP 11:33 → MS3 12:24 → SDC 16:38 → MS3 16:39
PROVIDERS: Anesthesiology; PCP Student in an Organized Health Care Education/Training Program; Referring Provider Obstetrics & Gynecology; Visit Provider Obstetrics & Gynecology
PROC: 0UT90ZZ Resection of Uterus, Open Approach (ICD-10-PCS; CPT 58571; principal; 2024-12-11 07:10)
DX: D25.9 Leiomyoma of uterus, unspecified (principal); G40.909 Epilepsy, unspecified, not intractable, without status epilepticus; E11.9 Type 2 diabetes mellitus without complications; Z79.4 Long term (current) use of insulin; N94.6 Dysmenorrhea, unspecified; N93.9 Abnormal uterine and vaginal bleeding, unspecified; N92.0 Excessive and frequent menstruation with regular cycle; N13.1 Hydronephrosis with ureteral stricture, not elsewhere classified; Z79.84 Long term (current) use of oral hypoglycemic drugs; Z79.890 Hormone replacement therapy; Z79.899 Other long term (current) drug therapy; E07.9 Disorder of thyroid, unspecified; J45.909 Unspecified asthma, uncomplicated; F84.0 Autistic disorder; Z53.09 Procedure and treatment not carried out because of other contraindication; N83.8 Other noninflammatory disorders of ovary, fallopian tube and broad ligament
CPT/HCPCS: 58571; S2900; 52332; 00840; J2405; 36415; 74178; 76000; 80048; 80053; 82962; 83036; 83735; 84443; 85027; 85730; 86850; 86900; 86901; 88307; 93005; C1769; Q9967; A4216; C1758; C2617; J3475